=== PATIENT | female | born 1980 | race Caucasian/White ===

== ENCOUNTER 2020-01-05 21:04 | Emergency (ER) | payer BC ==
--- NOTE | 2020-01-05 22:31 | EDPHYS ---
Physician Documentation [facility] Name: Cara Tejada Age: 39 yrs Sex: Female : 1980 Arrival Date: 01/05/2020 Time: 21:06 Bed 13 Private MD: ED Physician Jose Montoya HPI: 01/04 22:30 This 39 yrs old Female presents to ER via Ambulatory with complaints of Rash. pm1 01/05 00:48 The patient's rash thought to be caused by an unknown cause. The rash is located on the pm1 right arm, left arm and right leg. The rash can be described as crusted, circular. Onset: The symptoms/episode began/occurred 5 day(s) ago. Associated signs and symptoms: Pertinent positives: fever, itching, Pain. Severity of symptoms: in the emergency department the symptoms are worse. The patient has not experienced similar symptoms in the past. son has the same rash. Historical: - PMHx: 01/04 21:31 skin CA-reconstrutive surgery jaw. Right fibula removed; ll1 - Immunization history:: Flu vaccine is not up to date. - Social history:: Smoking status: Patient reports the use of cigarette tobacco products, smokes one-half pack cigarettes per day. ROS: 01/05 00:48 Cardiovascular: Negative for chest pain, palpitations, and edema, Respiratory: Negative pm1 for shortness of breath, cough, wheezing, and pleuritic chest pain, Abdomen/GI: Negative for abdominal pain, nausea, vomiting, diarrhea, and constipation, Back: Negative for injury and pain, MS/Extremity: Negative for injury and deformity. Neuro: Negative for headache, weakness, numbness, tingling, and seizure. Constitutional: Positive for fever. Skin: Positive for rash, of the right leg and left arm and right arm. Exam: 00:48 Constitutional: This is a well developed, well nourished patient who is awake, alert, pm1 and in no acute distress. Head/Face: Normocephalic, atraumatic. 00:48 Cardiovascular: Exam negative for acute changes, Rate: normal, Rhythm: regular, Pulses: no pulse deficits are appreciated. 00:48 Respiratory: Exam negative for acute changes, respiratory distress, shortness of breath. 00:48 Skin: Appearance: normal except for affected area, consistent with impetigo. Vital Signs: 01/04 21:26 BP 139 / 84; Pulse 104; Resp 17; Temp 98.4; Pulse Ox 100% ; Weight 92.99 kg; Height 5 ll1 ft. 10 in. (177.80 cm); Pain 10/10; 22:15 BP 122 / 60; Pulse 90; Resp 18; Pulse Ox 98% on R/A; ea 21:26 Body Mass Index 29.41 (92.99 kg, 177.80 cm) ll1 MDM: 21:56 Patient medically screened. [facility] 22:30 Data reviewed: vital signs. Data interpreted: Pulse oximetry: on room air is 100 %. pm1 Interpretation: normal. Counseling: I had a detailed discussion with the patient and/or guardian regarding: the historical points, exam findings, and any diagnostic results supporting the discharge/admit diagnosis, the need for outpatient follow up, to return to the emergency department if symptoms worsen or persist or if there are any questions or concerns that arise at home. Administered Medications: No medications were administered Disposition: 01/05 08:30 Co-signature as Attending Physician, Jose Montoya MD I agree with the assessment and [facility] plan of care. Disposition: 01/05/20 22:30 Discharged to Home. Impression: Impetigo. - Condition is Stable. - Discharge Instructions: Impetigo, Pediatric. - Prescriptions for Bactroban 2 % Topical Ointment - Apply to affected area 1 application by TOPICAL route every 12 hours; 30 gram. Keflex 500 mg Oral Capsule - take 1 capsule by ORAL route every 6 hours for 10 days; 40 capsule. Bactrim DS 800- 160 mg Oral Tablet - take 1 tablet by ORAL route every 12 hours for 10 days; 20 tablet. Tramadol 50 mg Oral Tablet - take 1 tablet by ORAL route every 8 hours as needed; 12 tablet. - Medication Reconciliation Form, Thank You Letter, Antibiotic Education, Prescription Opioid Use form. - Follow up: Emergency Department; When: 2 - 3 days; Reason: Recheck today's complaints, Continuance of care, Re-evaluation by your physician. - Problem is new. - Symptoms have improved. Signatures: Jose Montoya MD MD cha Marinas, Patrick, OIL DISPATCHER OIL DISPATCHER pm1 Dania Maravilla RN RN ea Lewis, Lynsay, RN RN ll1 Corrections: (The following items were deleted from the chart) 01/04 22:38 22:30 01/05/2020 22:30 Discharged to Home. Impression: Impetigo. Condition is Stable. ea Forms are Medication Reconciliation Form, Thank You Letter, Antibiotic Education, Prescription Opioid Use. Follow up: Emergency Department; When: 2 - 3 days; Reason: Recheck today's complaints, Continuance of care, Re-evaluation by your physician. Problem is new. Symptoms have improved. pm1
--- NOTE | 2020-01-05 22:31 | ER ---
Nurse's Notes [facility] Name: Cara Tejada Age: 39 yrs Sex: Female : 1980 Arrival Date: 01/05/2020 Time: 21:06 Bed 13 Private MD: Diagnosis: Impetigo Presentation: 01/04 21:26 Chief complaint: Patient states: Target-like rash to left arm started 5-6 days ago. + ll1 itching. (areas behind both knees also). Right lateral leg pain, tenderness, redness along old scar for 4 days. Fever up to 103.4 at home on Sunday. Coronavirus screen: Client denies travel out of the [place] in the last 14 days. At this time, the client does not indicate any symptoms associated with coronavirus-19. Ebola Screen: Patient denies travel to an Ebola-affected area in the 21 days before illness onset. Initial Sepsis Screen: Does the patient meet any 2 criteria? HR > 90 bpm. No. Patient's initial sepsis screen is negative. Does the patient have a suspected source of infection? Yes: Skin breakdown/wound. Risk Assessment: Do you want to hurt yourself or someone else? Patient reports no desire to harm self or others. Onset of symptoms was December 31, 2019. 21:26 Method Of Arrival: Ambulatory ll1 21:26 Acuity: DEMETRI 3 ll1 Historical: - PMHx: 21:31 skin CA-reconstrutive surgery jaw. Right fibula removed; ll1 - Immunization history:: Flu vaccine is not up to date. - Social history:: Smoking status: Patient reports the use of cigarette tobacco products, smokes one-half pack cigarettes per day. Screenin:03 Abuse screen: Denies threats or abuse. Nutritional screening: No deficits noted. ea Tuberculosis screening: No symptoms or risk factors identified. Fall Risk None identified. Assessment: 22:03 General: Appears in no apparent distress. Behavior is calm, cooperative, appropriate ea for age. Pain:. Pain: Complains of pain in right arm, left arm, right leg and left leg. Neuro: Level of Consciousness is awake, alert, obeys commands, Oriented to person, place, time, situation. Cardiovascular: Patient's skin is warm and dry. Respiratory: Airway is patent Respiratory effort is even, unlabored, Respiratory pattern is regular, symmetrical. Derm: Rash noted that is on left arm and lateral aspect of left calf. 22:36 Reassessment: Patient and/or family updated on plan of care and expected duration. Pain ea level reassessed. Patient is alert, oriented x 3, equal unlabored respirations, skin warm/dry/pink. Discharge instruction given to patient, verbalized the understanding of instruction. Pt left ED ambulatory tolerating well. Vital Signs: 21:26 BP 139 / 84; Pulse 104; Resp 17; Temp 98.4; Pulse Ox 100% ; Weight 92.99 kg; Height 5 ll1 ft. 10 in. (177.80 cm); Pain 10/10; 22:15 BP 122 / 60; Pulse 90; Resp 18; Pulse Ox 98% on R/A; ea 21:26 Body Mass Index 29.41 (92.99 kg, 177.80 cm) ll1 ED Course: 21:06 Patient arrived in ED. cf2 21:29 Triage completed. ll1 21:31 Arm band placed on. ll1 21:52 Brien Resendiz NP is PHCP. pm1 21:52 Jose Montoya MD is Attending Physician. pm1 22:03 Dania Maravilla, ROSENDA is Primary Nurse. ea 22:03 Patient has correct armband on for positive identification. Bed in low position. Call ea light in reach. 22:37 No provider procedures requiring assistance completed. Patient did not have IV access ea during this emergency room visit. Administered Medications: No medications were administered Outcome: 22:30 Discharge ordered by MD. pm1 22:37 Discharged to home ambulatory, with family. ea 22:37 Condition: stable 22:37 Discharge instructions given to patient, Instructed on discharge instructions, follow up and referral plans. medication usage, Demonstrated understanding of instructions, follow-up care, medications, Prescriptions given X 4. 22:38 Patient left the ED. ea Signatures: Brien Resendiz NP SECURITY ASSOCIATE pm1 Dania Maravilla, RN RN Camden Curran cf2 Mavis Nance RN RN [facility]
[2020-01-06 06:15] VITALS: BP 139/84; TEMP 98.4; O2SAT 100
== END 2020-01-05 22:38 | disposition home or self-care (01) ==
LOC: ER 21:04
DX: L01.00 Impetigo, unspecified (principal); F17.210 Nicotine dependence, cigarettes, uncomplicated
CPT/HCPCS: 99282

== ENCOUNTER 2022-09-13 08:53 | Emergency (ER) | payer BC ==
--- OUTSIDE RECORDS SUMMARY | 2022-09-13 08:56 | XMS REPORT | Clinical Summary ---
:1980 Author Organization [facility] MD Khan [facility] Address [address] [place] [address] Care Team Providers Name Role Phone Rickie Santos MD Unavailable Veronika Nance MD Primary Care Provider Rickie Santos MD Unavailable Flor Chamberlain DDS Unavailable Rickie Guerrier MD, Rickie Silva Unavailable Unavaila ble Allergies Active Allergy Reactions Severity Noted Date Comments Unable To Assess Medium 08/05/2015 Harmony nickerson her nauseated Medications Medication Sig Dispensed Refills Start Date End Date Status vismodegib (ERIVEDGE) Take 1 capsule by 0 06/20/2015 Active 150 mg cap mouth daily. baclofen 5 mg Take 5 mg by mouth 60 tablet 11 12/25/2017 Active tabIndications: Pain every 12 (twelve) in right leg hours. gabapentin Take 1 capsule 90 capsule 11 12/25/2017 Ac tive (NEURONTIN) 300 mg (300 mg) by mouth capsuleIndications: 3 (three) times a Pain in right leg day. 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 FL TRACHEOSTOMY PLANNED 08/30/2015 Neck/Midline Procedur e: TRACHEOSTOMY - SEPARATE PROCEDURE PLANNED; Surg starr: Veronika Nance MD; Locat ion: MAIN OR; Service: HN - HEAD & NECK SURGERY Medical devices from this surgery are in t he Medical Devices section. FL CERVICAL LYMPHADEC 08/30/2015 Left Procedure: LEVEL II-III MODIFIED RADICAL NECK DSJ NECK D ISSECTION/ Neck exploration for vessels; Surgeon: Veronika Nance MD; Location: [facility] IN OR; Service: HN - HE AD & NECK SURGERY Medical devices from this surgery are in t he Medical Devices section. FL BONE GRAFT 08/30/2015 Leg Lower/Left Procedure: BONE GRAFT FROM MICROVASCULAR ANASTOMOSIS FIBULA WITH MICROVASCULAR FIBULA ANASTOMOSIS; Bee geon: Brien Luque MD; Location: MAIN O R; Service: PLS - P LASTIC SURGERY Medical devices from this surgery are in t he Medical Devices section. 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 Family History Medical History Relation Name Comments Diabetes Father neftaly clifton -Melanoma Maternal Aunt cosmo alarcon melanoma -Gastrointestinal (Esophagus, Maternal Grandmother rayshawn clifton stomach cancer Liver, Bile Duct, Stomach, Pancreas, Colon, Rectum, Anus -Genitourinary (Bladder, Maternal Grandmother rayshawn clifton ki dney Kidney, Prostate, Testicle) Diabetes Maternal Uncle natalie clifton -Skin (not Melanoma) Mother gualberto clifton skin cancer -Skin (not Melanoma) Sister blaze kurtz skin can cer Relation Name Status Comments Father neftlay clifton Maternal Aunt cosmo cochranorn Maternal Grandmother rayshawn clifton Maternal Uncle natalie clifton Mother gualberto clifton Sister blaze kurtz Social History Tobacco Use Types Packs/Day Years Used Date Smoking Tobacco: Former Cigarettes 0.3 3 Quit : 07/31/2015 Smokeless Tobacco: Never Tobacco Cessation: Ready to Quit: Yes; C ounseling Given: Yes Alcohol Use Standard Drinks/Week Comments Yes 3 (1 standard drink = 0.6 oz pure alcoho l) Sex Assigned at Date Recorded Not on file Obstetrics History Para Term AB IAB SAB Ectopic Multiple Living Live Births 3 3 Date Outcome GA Total Labor/2nd/3rd Weight Sex Delivery Anes PTL Miriam A 1 A5 Name Clin Labor Para Para Para Comments Vaginal delivery Denies any abortions Denies any miscarriages Last Filed Vital Signs Not on file Plan of Treatment Health Maintenance Due Date Last Done Comments COVID-19 Vaccination (#1) 1980 Medical Devices Implanted Type Area Social Service Technician Device Shelf Model / Identifier Expiration Serial / Date Lot Synthes Ti Pt Spfc Mandb Plte 2.0mm Implant Left: [employer] [facility] [employer] [id number] / Implanted: Qty: 1 on 08/30/2015 by Brien Luque MD at [facility] Mandible / Description: Patient specific plate//cos t of instr/plan kit (#SD900.001) included with cost of plte Results Not on fileafter 09/13/2021 Insurance Payer Benefit Plan / Subscriber ID Effective Dates Phone Addre ss Type Group [employer] [employer] [place] POS [id number] 2014-Present [address] [address] [place] [address] Advance Directives Code Status Date Activated Date Inactivated Comments Full Code 08/30/2015 9:33 PM 09/06/2015 7:52 PM Care Teams Oxidation Engineer Relationship Specialty Start Date End Date Rickie Santos, PCP - External Referring Oral Surgery 06/20/14 Veronika Nance MD PCP - General Head and Neck 06/23/[address] [place], [place] [address] [address] Rickie Santos, PCP - External Follow Up Oral Surgery 07/08/15 MD Varner Flor Chamberlain, Consulting Physician Dental Oncology 07/08/15 DDS [address] [id number] Rickie Damian Consulting Physician Head and Neck 07/08/15 Shira Guerrier MD Medical Oncology
[2022-09-13] MEDS ORDERED: AMOX/K CLAV 875 MG TAB ONE (09:21)
[2022-09-13] MEDS ORDERED: CETIRIZINE HCL 5 MG TABLET ONE (09:21)
[2022-09-13] MEDS ORDERED: IBUPROFEN 200 MG TAB PO ONE (09:22)
[2022-09-13] MEDS ORDERED: FAMOTIDINE 20 MG TAB ONE (09:22)
--- NOTE | 2022-09-13 09:29 | ER ---
Nurse's Notes [facility] Name: Cara Tejada Age: 42 yrs Sex: Female : 1980 Arrival Date: 09/13/2022 Time: 08:53 Bed 16 Private MD: Diagnosis: Cellulitis of face Presentation: 09/13 09:04 Chief complaint: Patient states: Sunday her forehead got red and itchy. Awoke today ll1 with R eyelid swelling and itching. Site is warm to touch, but no fever. Coronavirus screen: Vaccine status: Patient reports receiving the 2nd dose of the covid vaccine. Client denies travel out of the [place] in the last 14 days. At this time, the client does not indicate any symptoms associated with coronavirus-19. Ebola Screen: Patient denies travel to an Ebola-affected area in the 21 days before illness onset. Initial Sepsis Screen: Does the patient meet any 2 criteria? No. Patient's initial sepsis screen is negative. Does the patient have a suspected source of infection? Yes: Skin breakdown/wound. Risk Assessment: Do you want to hurt yourself or someone else? Patient reports no desire to harm self or others. Onset of symptoms was September 10, 2022. 09:04 Method Of Arrival: Ambulatory ll1 09:04 Acuity: DEMETRI 3 ll1 Triage Assessment: 09:06 General: Appears uncomfortable, Behavior is calm, cooperative, appropriate for age. ll1 Pain: Complains of pain in face Pain currently is 5 out of 10 on a pain scale. Quality of pain is described as aching, tender. EENT: Reports swelling to R eyelid area. Derm: Reports pain, swelling, redness, tenderness to face. Historical: - Allergies: 09:03 anesthesia; ll1 - PMHx: 09:03 skin CA-reconstrutive surgery jaw. Right fibula removed; ll1 - PSHx: 09:03 jaw SX; ll1 - Immunization history:: Client reports receiving the 2nd dose of the Covid vaccine. - Social history:: Smoking status: Patient reports the use of cigarette tobacco products, smokes one-half pack cigarettes per day. Screenin:17 [facility] ED Fall Risk Assessment (Adult) History of falling in the last 3 months, kc6 including since admission No falls in past 3 months (0 pts) Confusion or Disorientation No (0 pts) Intoxicated or Sedated No (0 pts) Impaired Gait No (0 pts) Mobility Assist Device Used No (0 pt) Altered Elimination No (0 pt) Score/Fall Risk Level 0 - 2 = Low Risk. Abuse screen: Denies threats or abuse. Denies injuries from another. Nutritional screening: No deficits noted. Tuberculosis screening: No symptoms or risk factors identified. Assessment: 09:16 General: Appears in no apparent distress. comfortable, Behavior is calm, cooperative, kc6 appropriate for age. Pain: Denies pain. Neuro: Level of Consciousness is awake, alert, obeys commands, Oriented to person, place, time, situation, Appropriate for age. Cardiovascular: Denies chest pain, Capillary refill < 3 seconds. Respiratory: Airway is patent Trachea midline Respiratory effort is even, unlabored, Respiratory pattern is regular, symmetrical, Denies shortness of breath. GI: No signs and/or symptoms were reported involving the gastrointestinal system. : No signs and/or symptoms were reported regarding the genitourinary system. EENT: right eye appears to be swollen. Derm: Skin is intact, is healthy with good turgor, Skin is pink, warm \T\ dry. Musculoskeletal: No signs and/or symptoms reported regarding the musculoskeletal system. Circulation, motion, and sensation intact. Capillary refill < 3 seconds, Range of motion: intact in all extremities. Vital Signs: 09:04 BP 157 / 91; Pulse 94; Resp 17; Temp 98.8; Pulse Ox 98% on R/A; Weight 93.44 kg; Height ll1 6 ft. 0 in. ; Pain 5/10; 09:34 BP 146 / 85; Pulse 83; Resp 19 S; Pulse Ox 96% on R/A; kc6 09:04 Body Mass Index 27.94 (93.44 kg, 182.88 cm) ll1 09:04 Pain Scale: Adult ll1 ED Course: 08:55 Patient arrived in ED. im 08:58 Leta Min RN is Primary Nurse. kc6 08:58 Ally Buenrostro FNP-C is PHCP. snw 08:58 Sloan Lei MD is Attending Physician. snw 09:03 Arm band placed on Patient placed in an exam room, on a stretcher. ll1 09:06 Triage completed. ll1 09:18 Patient has correct armband on for positive identification. Bed in low position. Call kc6 light in reach. Side rails up X 1. Adult w/ patient. 09:34 No provider procedures requiring assistance completed. kc6 09:36 Patient did not have IV access during this emergency room visit. kc6 Administered Medications: 09:15 Drug: ZyrTEC - Cetirizine PO 10 mg Route: PO; kc6 09:34 Follow up: Response: No adverse reaction kc6 09:15 Drug: Famotidine PO 20 mg Route: PO; kc6 09:34 Follow up: Response: No adverse reaction kc6 09:15 Drug: Amoxicillin-Clavulanate PO 875 mg Route: PO; kc6 09:34 Follow up: Response: No adverse reaction kc6 09:15 Drug: Ibuprofen PO 600 mg Route: PO; kc6 09:34 Follow up: Response: No adverse reaction kc6 09:26 Drug: Dexamethasone IM 10 mg Route: IM; Site: left deltoid; kc6 09:34 Follow up: Response: No adverse reaction kc6 Medication: 09:37 VIS not applicable for this client. kc6 Outcome: 09:29 Discharge ordered by . harinder 09:36 Discharged to home ambulatory, with significant other. kc6 09:36 Condition: stable 09:36 Discharge instructions given to patient, Instructed on discharge instructions, follow up and referral plans. medication usage, Demonstrated understanding of instructions, follow-up care, medications, Prescriptions given X 4. 09:37 Patient left the ED. kc6 Signatures: Ally Buenrostro, KELP CUTTER-C KELP CUTTER-Mavis Crooks RN RN ll1 Leta Min RN RN kc6 Cherelle Iyer
--- NOTE | 2022-09-13 09:29 | EDPHYS ---
Physician Documentation [facility] Name: Cara Tejada Age: 42 yrs Sex: Female : 1980 Arrival Date: 09/13/2022 Time: 08:53 Bed 16 Private MD: ED Physician Sloan Lei HPI: 09/13 09:18 This 42 yrs old Female presents to ER via Ambulatory with complaints of Eye Swelling - snw Right. 09:18 The patient is experiencing redness, swelling. Onset: The symptoms/episode snw began/occurred acutely. Duration: the symptoms are continuous. Associated signs and symptoms: Pertinent positives: warmth at site. Severity of symptoms: At their worst the symptoms were moderate in the emergency department the symptoms are unchanged. The patient has not recently seen a physician. saw [facility] for Mohs procedure, denies any follow up. Historical: - Allergies: 09:03 anesthesia; ll1 - PMHx: 09:03 skin CA-reconstrutive surgery jaw. Right fibula removed; ll1 - PSHx: 09:03 jaw SX; ll1 - Immunization history:: Client reports receiving the 2nd dose of the Covid vaccine. - Social history:: Smoking status: Patient reports the use of cigarette tobacco products, smokes one-half pack cigarettes per day. ROS: 09:14 Constitutional: Negative for fever, chills, and weight loss, Eyes: Negative for injury, snw pain, + redness and edema ENT: Negative for injury, pain, and discharge, Neck: Negative for injury, pain, and swelling, Cardiovascular: Negative for chest pain, palpitations, and edema, Respiratory: Negative for shortness of breath, cough, wheezing, and pleuritic chest pain, Abdomen/GI: Negative for abdominal pain, nausea, vomiting, diarrhea, and constipation, Back: Negative for injury and pain, : Negative for injury, bleeding, discharge, and swelling, MS/Extremity: Negative for injury and deformity, Neuro: Negative for headache, weakness, numbness, tingling, and seizure, Psych: Negative for depression, anxiety, suicide ideation, homicidal ideation, and hallucinations. 09:14 Skin: Positive for swelling. Exam: 09:08 Constitutional: This is a well developed, well nourished patient who is awake, alert, snw and in no acute distress. ENT: Nares patent. No nasal discharge, no septal abnormalities noted. Tympanic membranes are normal and external auditory canals are clear. Oropharynx with no redness, swelling, or masses, exudates, or evidence of obstruction, uvula midline. Mucous membranes moist. Neck: Trachea midline, no thyromegaly or masses palpated, and no cervical lymphadenopathy. Supple, full range of motion without nuchal rigidity, or vertebral point tenderness. No Meningismus. Chest/axilla: Normal chest wall appearance and motion. Nontender with no deformity. No lesions are appreciated. Cardiovascular: Regular rate and rhythm with a normal S1 and S2. No gallops, murmurs, or rubs. Normal PMI, no JVD. No pulse deficits. Respiratory: Lungs have equal breath sounds bilaterally, clear to auscultation and percussion. No rales, rhonchi or wheezes noted. No increased work of breathing, no retractions or nasal flaring. Abdomen/GI: Soft, non-tender, with normal bowel sounds. No distension or tympany. No guarding or rebound. No evidence of tenderness throughout. Back: No spinal tenderness. No costovertebral tenderness. Full range of motion. MS/ Extremity: Pulses equal, no cyanosis. Neurovascular intact. Full, normal range of motion. Neuro: Awake and alert, GCS 15, oriented to person, place, time, and situation. Cranial nerves II-XII grossly intact. Motor strength 5/5 in all extremities. Sensory grossly intact. Cerebellar exam normal. Normal gait. Psych: Awake, alert, with orientation to person, place and time. Behavior, mood, and affect are within normal limits. 09:08 Head/face: Noted is basal cell carcinoma to face, reconstructive surgery 7 years ago, last weekend area around surgical site became erythematous and warm, today area of cellulitis remains but has increased edema over upper eyelid. Vital Signs: 09:04 BP 157 / 91; Pulse 94; Resp 17; Temp 98.8; Pulse Ox 98% on R/A; Weight 93.44 kg; Height ll1 6 ft. 0 in. ; Pain 5/10; 09:34 BP 146 / 85; Pulse 83; Resp 19 S; Pulse Ox 96% on R/A; kc6 09:04 Body Mass Index 27.94 (93.44 kg, 182.88 cm) ll1 09:04 Pain Scale: Adult ll1 MDM: 08:59 Patient medically screened. snw 09:15 Differential diagnosis: cellulitis, cancer recurrence. Data reviewed: vital signs, snw nurses notes. I considered the following discharge prescriptions or medication management in the emergency department Medications were administered in the Emergency Department. See MAR. Counseling: I had a detailed discussion with the patient and/or guardian regarding: the historical points, exam findings, and any diagnostic results supporting the discharge/admit diagnosis, the need for outpatient follow up, for definitive care, oncology. Response to treatment: There is no appreciated change of the patient's symptoms at this time. Special discussion: I have referred the patient to see his PCP for further evaluation of high blood pressure. Based on the history and exam findings, there is no indication for further emergent testing or inpatient evaluation. 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 I discussed with the patient/guardian the need to see the primary care provider for further evaluation of the symptoms. Administered Medications: 09:15 Drug: ZyrTEC - Cetirizine PO 10 mg Route: PO; kc6 09:34 Follow up: Response: No adverse reaction kc6 09:15 Drug: Famotidine PO 20 mg Route: PO; kc6 09:34 Follow up: Response: No adverse reaction kc6 09:15 Drug: Amoxicillin-Clavulanate PO 875 mg Route: PO; kc6 09:34 Follow up: Response: No adverse reaction kc6 09:15 Drug: Ibuprofen PO 600 mg Route: PO; kc6 09:34 Follow up: Response: No adverse reaction kc6 09:26 Drug: Dexamethasone IM 10 mg Route: IM; Site: left deltoid; kc6 09:34 Follow up: Response: No adverse reaction kc6 Disposition Summary: 09/13/22 09:29 Discharge Ordered Location: Home snw Condition: Stable snw Diagnosis - Cellulitis of face snw Followup: snw - With: Emergency Department - When: As needed - Reason: Worsening of condition Followup: snw - With: Private Physician - When: 1 - 2 days - Reason: Recheck today's complaints, Continuance of care, Re-evaluation by your physician Discharge Instructions: - Discharge Summary Sheet snw - Cellulitis, Adult snw - Preseptal Cellulitis, Adult snw Forms: - Medication Reconciliation Form snw - Thank You Letter snw - Antibiotic Education snw - Prescription Opioid Use snw - Patient Portal Instructions snw Prescriptions: - Augmentin 875-125 mg Oral Tablet - take 1 tablet by ORAL route every 12 hours for 10 days; 20 tablet; Refills: 0, snw Product Selection Permitted - Zyrtec 10 mg Oral Tablet - take 1 tablet by ORAL route once daily As needed; 20 tablet; Refills: 0, snw Product Selection Permitted - Tramadol 50 mg Oral Tablet - take 1 tablet by ORAL route every 8 hours as needed; 12 tablet; Refills: 0, snw Product Selection Permitted - Pepcid 20 mg Oral Tablet - take 1 tablet by ORAL route once daily; 20 tablet; Refills: 0, Product snw Selection Permitted Signatures: Ally Buenrostro FNP-C FNP-Csnw Mavis Nance, RN RN ll1 Leta Min RN RN kc6
[2022-09-13] MEDS ORDERED: dexAMETHasone 10 MG/ML VIAL ONE (09:32)
[2022-09-13 09:41] VITALS: TEMP 98.8
[2022-09-13 09:43] VITALS: BP 146/85; O2SAT 96
== END 2022-09-13 09:37 | disposition home or self-care (01) ==
LOC: ER 08:53
DX: L03.211 Cellulitis of face (principal); F17.210 Nicotine dependence, cigarettes, uncomplicated; Z88.4 Allergy status to anesthetic agent
CPT/HCPCS: 96372; 99284; J1100